=== PATIENT | female | born 1975 | race Caucasian/White ===

== ENCOUNTER → 2023-06-27 12:10 | Outpatient (CLI) | payer OTHER, SELFPAY ==
--- NOTE | 2023-06-27 12:14 | DI.RAD.S_ITS ---
PROCEDURE: XR LUMBAR SPINE MIN 4V INDICATIONS: LOW BACK PAIN TECHNIQUE: 5 views of the lumbar spine were acquired, including bilateral oblique views. COMPARISON: None. FINDINGS: Bones: 5 nonrib-bearing vertebrae are present. There is normal bony alignment. Facet arthropathy, most pronounced in the lower lumbar spine. No vertebral body compression fractures. No suspicious bony lesions. Soft tissues: Overlying bowel gas pattern is normal. No suspicious soft tissue calcifications. Oblique images: No pars defects. IMPRESSION: Facet arthropathy of the lower lumbar spine. Otherwise, normal appearance of the spine. Dictated by: Devonte Gomez M.D. on 06/27/2023 at 13:31 Approved by: Devonte Gomez M.D. on 06/27/2023 at 13:32
== END ==
PROVIDERS: Referring Provider Anesthesiology; Visit Provider Anesthesiology
DX: M47.816 Spondylosis without myelopathy or radiculopathy, lumbar region (principal); M54.50 Low back pain, unspecified
CPT/HCPCS: 72110

== ENCOUNTER → 2024-01-08 08:36 | Outpatient (CLI) | payer OTHER, SELFPAY ==
--- NOTE | 2024-01-08 08:38 | DI.MRI.S_ITS ---
PROCEDURE: MR LUMBAR SPINE WO CON INDICATIONS: progressive LBP l>R TECHNIQUE: Noncontrast sagittal T1 spin echo and T2 fast echo, sagittal STIR, and T2 fast spin echo through the lumbar spine. In cases with scoliosis, additional coronal T2 fast spin echo may be performed. COMPARISON: None. FINDINGS: Alignment and Curvature: There is normal bony alignment. Bone Marrow: Marrow is of normal overall signal. No acute vertebral body compression fractures. Spinal Cord: Conus medullaris terminates at the L1 level. Visualized cord demonstrates normal signal and size. Paraspinous Soft Tissues: No paravertebral masses. T12-L1: Normal appearance. L1-L2: Normal appearance. L2-L3: Normal appearance. L3-L4: High-intensity zone in the posterior annulus reflects annular fissure or tear. Hypertrophic facet joints present. Disc bulge. Mild central stenosis. No foraminal stenosis. L4-L5: Hypertrophic arthropathy. No central stenosis. Mild disc bulge with high-intensity zone in the posterior annulus reflecting tiny annular fissure or tear. No foraminal stenosis. L5-S1: Disc bulge. Mild arthropathy. No central or foraminal stenosis. IMPRESSION: Small annular fissure or tear at L3-4 and L4-5. No significant central or foraminal stenosis throughout the exam. Approved by: Zeyad West M.D. on 01/09/2024 at 14:40
== END ==
PROVIDERS: Referring Provider Physical Medicine & Rehabilitation; Visit Provider Physical Medicine & Rehabilitation
DX: M47.26 Other spondylosis with radiculopathy, lumbar region (principal); M51.16 Intervertebral disc disorders with radiculopathy, lumbar region
CPT/HCPCS: 72148